=== PATIENT | female | born 1930 | race Caucasian/White ===

== ENCOUNTER 2017-12-06 18:17 | Emergency (ER) | payer OTHER, MEDICARE ==
[~2017-12-06] VITALS: Ht 157.5 cm; Wt 39.6 kg
[~2017-12-06 18:17] MED LIST: ASPIR 8181 M1 PO; Aspirin E.C. PO; Baciguent Ophth Oint BOTH EYES; CALCIO DEL MAR500 MG PO; CALCIUM 600+D1 EACH PO; CALCIUM500 M5 PO; CIPRO250 MG PO; COMBIGAN O20 DROP/5 BOTH EYES; COSOPT EYE DROPS5 ML BOTH EYES; Ceftin PO; Combigan Ophth Soln BOTH EYES; LUMIGAN 0.01% EYE DR BOTH EYES; Lumigan 0.01% Ophth BOTH EYES; TIMOPTIC2.5 M1 BOTH EYES; XALATAN2.5 ML BOTH EYES; ZIOPTAN 0.00151 EACH BOTH EYES; Zithromax PO
[2017-12-06 21:10] VITALS: BP 175/92
== END 2017-12-06 21:10 | disposition home or self-care (01) ==
LOC: EME 18:17
DX: K40.91 Unilateral inguinal hernia, without obstruction or gangrene, recurrent (principal); E11.9 Type 2 diabetes mellitus without complications; J44.9 Chronic obstructive pulmonary disease, unspecified; I12.9 Hypertensive chronic kidney disease with stage 1 through stage 4 chronic kidney disease, or unspecified chronic kidney disease; N18.9 Chronic kidney disease, unspecified; K21.9 Gastro-esophageal reflux disease without esophagitis; Z87.891 Personal history of nicotine dependence; Z79.82 Long term (current) use of aspirin; Z88.2 Allergy status to sulfonamides; Z88.1 Allergy status to other antibiotic agents; Z88.8 Allergy status to other drugs, medicaments and biological substances
CPT/HCPCS: 99281; 99283